=== PATIENT | female | born 1945 | race Caucasian/White ===

== ENCOUNTER → 2017-04-26 | Outpatient (CLI) | payer OTHER ==
[~2017-04-26] MED LIST: ACID REDUCER20 MG PO; COZAAR100 MG PO; FORTAMET500 MG PO; GLIMEPIRIDE1 M1 PO; MEVACOR10 MG PO; VITAMIN E100 UNI2 PO
--- NOTE | ~2017-04-26 | BD1 ---
[facility] A Service of [facility] & [facility] RADIOLOGY TEXT RESULTS PATIENT: ANGELICA BRADFORD LOCATION: [facility] : 45 UNIT #: [id number] AGE: [address]: Winston Culver MD SEX: F ORDER DR: [id number] [address] [address] [id number] O MR#: [id number] Acc #: [id number] NAME: ANGELICA BRADFORD : 1945 SEX: F STUDY DATE/TIME: 04/26/2017 10:40 UNIT: [facility] ROOM: STUDY DESCRIPTION: Dexa Bone Dens 1+ Site Attending Physician: Winston Culver M.D. Referring Physician: Winston Culver M.D. Ordering Physician: Winston Culver M.D. Primary Care Physician: Winston Culver M.D. MEDICAL IMAGING REPORT This report is preliminary unless electronic signature is present. EXAM DXA scan 04/26/2017 HISTORY Status post menopause with no hormone replacement therapy. Osteopenia. Diabetes. Hypertension with blood pressure medication. Fracture of wrist in last 10 years. FINDINGS Bone mineral density in the lumbar spine from L1-L4 is 0.989 g/cm2 which is 1.6 standard deviations below the mean when compared to the young adult reference population which is characteristic of osteopenia. This is 0.4 standard deviations below the mean when compared to the age-matched population. Bone mineral density in the left femoral neck was 0.713 g/cm2 which is 2.3 standard deviations below the mean when compared to the young adult reference population which is characteristic of osteopenia. This is 0.9 standard deviations below the mean when compared to the age-matched population. Bone mineral density in the right femoral neck was 0.722 g/cm2 which is 2.3 standard deviations below the mean when compared to the young adult reference population which is characteristic of osteopenia. This is 0.9 standard deviations below the mean when compared to the age-matched population. IMPRESSION Bone mineral density in the lumbar spine and the hips bilaterally characteristic of osteopenia. Dictated by... Seven Watson M.D. THIS IS AN ELECTRONICALLY VERIFIED REPORT [facility] A Service of [facility] & [facility] RADIOLOGY TEXT RESULTS PATIENT: ANGELICA BRADFORD LOCATION: [facility] : 45 UNIT #: [id number] AGE: [address]: Winston Culver MD SEX: F ORDER DR: Seven Watson M.D. at 04/27/2017 8:27 AM KRT/seferino TD: 04/26/2017 14:44 JOB #: [id number] MEDICAL IMAGING REPORT Page 1 of 1
== END | disposition home or self-care (01) ==
LOC: SRAD 04-25 13:00
DX: M81.0 Age-related osteoporosis without current pathological fracture (principal)
CPT/HCPCS: 77080